=== PATIENT | male | born 1995 | race Hispanic/Latino ===

== ENCOUNTER 2019-09-06 10:00 | Emergency (ER) | payer SELFPAY ==
--- NOTE | 2019-09-06 10:20 | ED.EYEPROB ---
HPI - Eye Problem General Chief complaint: Eye Problems Stated complaint: eye problems Time Seen by Provider: 09/06/19 10:24 Source: patient and RN notes reviewed Mode of arrival: ambulatory Limitations: language barrier History of Present Illness HPI Narrative: This is a 24 years old Hispan[place] male presents to the office with his girlfriend for an evaluation of right eye problem. Onset on Friday. Symptoms began with localize redness and irritation; which has seem to resolved after otc pink eyedrops. However he still feel like there is foreign body sensation. Denies visual change, blurry vision. He does not wear glasses or contact lens. Girl friend is a e learning manager and speak fluent [place]. Related Data Home Medications Medication Instructions Recorded Confirmed Levaquin 09/06/19 Allergies Allergy/AdvReac Type Severity Reaction Status Date / Time No Known Allergies Allergy Verified 09/06/19 10:25 Review of Systems Review of Systems: Narrative: CONSTITUTIONAL: Denies fever EYES: Denies visual changes, redness, discharge. Reports right eye foreign body sensation with white bump . Denies eye injury/trauma. 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 ENT: Denies congestion, sore throat CARDIOVASCULAR: Denies chest pain RESPIRATORY: Denies dyspnea, cough GASTROINTESTINAL: Denies abdominal pain, nausea, vomiting SKIN: Denies rash NEUROLOGIC: Denies lightheaded PMFSH Comments At time of signature, I agree with nursing past medical, surgical, social and family history. There is no relevant family history pertinent to the presenting complaint. Exam Narrative: Exam Narrative: GENERAL: This is a well-nourished, well-developed patient, in no apparent distress. EYES: PERRL. EMOI. White localize ~2mm round lesion noted at 3'oclock on the sclera. Bilateral conjunctive are normal. Vision is grossly intact. Topical anesthetic was instilled with good anesthesia using 1gtt of opth anesthetic agent (tetracaine). Fluorescein stain of the R eye was performed with uptake of dye at 3oclock; with possible foreign body; however I was not able to remove it with q-tip. No epithelial defect was noted. Upper lid was everted and no FB or lesions were noted. NO Gracie sign. Normal saline irrigation eye solution was performed and the patient tolerated the procedure well, no adverse reaction or complications. CARDIOVASCULAR: Regular rate and rhythm without murmurs, gallops, or rubs. RESPIRATORY: Clear to auscultation. Breath sounds equal bilaterally. No wheezes, rales, or rhonchi. GASTROINTESTINAL: Abdomen soft, non-tender, nondistended. Bowel sounds are active. No hepato-splenomegaly, or palpable masses. No guarding. SKIN: warm, intact with no suspicious lesions or rash, good texture and turgor. NEURO: awake, alert, and oriented to person, place and time. There were no obvious focal neurologic abnormalities. Steady gait Mary Lou Coma Scale Eye Opening: Spontaneous 4 Gideon Coma Scale Motor: Obeys Commands 6 Gideon Coma Scale Verbal: Oriented 5 Course Vital Signs Vital signs: Vital Signs Temperature 98.2 F 09/06/19 10:21 Pulse Rate 83 09/06/19 10:21 Respiratory Rate 16 09/06/19 10:21 Blood Pressure 137/96 H 09/06/19 10:21 Pulse Oximetry 99 09/06/19 10:21 Temperature 98.2 F 09/06/19 10:21 Pulse Rate 83 09/06/19 10:21 Respiratory Rate 16 09/06/19 10:21 Blood Pressure 137/96 H 09/06/19 10:21 Pulse Oximetry 99 09/06/19 10:21 MDM - Eye Problem MDM Narrative Medical decision making narrative: Discharge instructions reviewed with patient, as well as provided in writing per nursing staff. The instructions also include specific and strict return/GO TO THE ER as well as f/u information. All questions have been answered, and the patient deny any further questions with discharge and discharge plan. Differential Diagnosis Differential diagnosis: Likely corneal abrasion, conjunctivit
[2019-09-06 10:21] VITALS: BP 137/96; PULSE 83; RESP 16; TEMP 36.8; O2SAT 99
== END 2019-09-06 10:57 | disposition home or self-care (01) ==
PROVIDERS: Emergency Provider Nurse Practitioner
DX: S05.01XA Injury of conjunctiva and corneal abrasion without foreign body, right eye, initial encounter (principal); X58.XXXA Exposure to other specified factors, initial encounter
CPT/HCPCS: 65205; 99203; A9270; G0463